=== PATIENT | female | born 1980 | race Caucasian/White ===

== ENCOUNTER → 2017-12-27 | Outpatient (CLI) | payer OTHER ==
--- NOTE | 2017-12-27 11:44 | KCIC ---
LIMITED ABDOMINAL DOPPLER History: Elevated liver enzymes Comparison: None. Findings: Multiple grayscale, color, and duplex spectral analysis waveform images of the hepatic vasculature are submitted. Hepatic veins are patent. Portal vein is patent. There is normal directional flow of the hepatic vasculature. There is is segmental visualization of the inferior vena cava. There is diffuse coarsening of the echotexture of the liver. Right lobe of the liver measured 17.1 cm longitudinal. Visualized common bile duct is within normal limits at 0.3 cm. Exam does not fully evaluate the abdominal visceral organs. Splenic vein is patent. Impression: 1. There is normal flow of the hepatic vasculature. 2. There is diffuse coarsening of the echotexture of liver, most likely due to steatosis. Electronically signed by: Pierre Ellis MD (12/27/2017 11:40 AM) [id number]
== END | disposition home or self-care (01) ==
LOC: KCIC US 08:00
PROVIDERS: ATTEND Family Medicine
DX: R74.8 Abnormal levels of other serum enzymes (principal)
CPT/HCPCS: 93976

== ENCOUNTER 2018-08-17 15:17 | Emergency (ER) | payer OTHER ==
[~2018-08-17] VITALS: Ht 170.2 cm; Wt 113.4 kg
--- NOTE | 2018-08-17 15:55 | PHYS DOC ---
Past Medical History Past Medical History: Hypothyroid Past Surgical History: Tonsillectomy Alcohol Use: Rarely Drug Use: None Adult General Chief Complaint Chief Complaint: COUGH HPI HPI 38-year-old female presents to ER for complaints of cough, chest tightness, and fever. Patient reports she went to [place] on Monday and tumbled multiple times in the water causing her to swallow a large amount of water. Patient states she felt fine the following day however over the past couple of days she has developed a dry barky cough- denies any shortness of air. Patient states she is tightness in the center of her chest denies pain radiation. Patient on arrival has 100.5 temperature denies taking any [id number] medications. 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 Patient reports she has had T&A however has had a sore throat over the past couple of days. Patient denies any recent with travel, smoking history, or past cardiac history. Review of Systems Review of Systems Constitutional: Reports fever Eyes: Denies change in visual acuity, redness, or eye pain [] HENT: Denies nasal congestion. Reports sore throat Respiratory: Denies shortness of breath. Reports dry barky cough Cardiovascular: Reports chest tightness GI: Denies abdominal pain, nausea, vomiting, bloody stools or diarrhea [] : Denies dysuria or hematuria [] Musculoskeletal: Denies back/neck pain or joint pain [] Integument: Denies rash or skin lesions [] Neurologic: Denies headache, focal weakness or sensory changes [] Endocrine: Denies polyuria or polydipsia [] All other systems were reviewed and found to be within normal limits, except as documented in this note. Current Medications Current Medications Current Medications Medications (Trade) Dose Ordered Sig/Ewelina Start Time Stop Time Status Last Admin Dose Admin Acetaminophen (Tylenol) 1,000 mg 1X ONCE 08/17/18 16:45 08/17/18 16:48 DC 08/17/18 17:50 1,000 MG Albuterol/ Ipratropium (Duoneb) 3 ml 1X ONCE 08/17/18 16:00 08/17/18 16:01 DC 08/17/18 16:01 3 ML Ibuprofen (Motrin) 600 mg 1X ONCE 7/12/19 16:00 08/17/18 16:01 DC 08/17/18 15:53 600 MG Prednisone (Prednisone) 40 mg 1X ONCE 08/17/18 16:00 08/17/18 16:01 DC 08/17/18 15:53 40 MG Sodium Chloride 1,000 ml @ 1,000 mls/hr 1X ONCE 08/17/18 16:45 08/17/18 17:44 DC 08/17/18 17:51 1,000 MLS/HR Allergies Allergies Allergies Coded Allergies Type Severity Reaction Last Updated Verified No Known Drug Allergies 08/17/18 No Physical Exam Physical Exam Constitutional: Well developed, well nourished, no acute distress, non-toxic appearance. [] HENT: Normocephalic, atraumatic, bilateral external ears normal, oropharynx mike [address], pharyngeal erythema, nose normal. [] Eyes: Pupils equal, conjunctiva normal, no discharge. [] Neck: Normal range of motion, no tenderness, supple, no stridor. [] Cardiovascular: Tachycardic heart rate regular rhythm, no murmur [] Lungs & Thorax: Bilateral breath sounds clear to auscultation- diminished in ba ses. Resp. equal/nonlabored. Speaking in full sentences Abdomen: Bowel sounds normal, soft, no tenderness, no masses, no pulsatile masses. [] Skin: Warm, dry, no erythema, no rash. [] Back: No tenderness, no CVA tenderness. [] Extremities: No tenderness, no cyanosis, no clubbing, ROM intact, no edema. [] Neurologic: Alert and oriented X 3, normal motor function, normal sensory function, no focal deficits noted. [] Psychologic: Affect normal, judgement normal, mood normal. [] Current Patient Data Vital Signs Vital Signs Date Time Temp Pulse Resp B/P (MAP) Pulse Ox O2 Delivery O2 Flow Rate FiO2 08/17/18 19:30 96 120/70 (87) 94 Room Air 08/17/18 15:28 100.5 18 100.5 Lab Values Laboratory Tests Test 08/17/18 15:40 08/17/18 17:40 08/17/18 18:30 Group A Streptococcus Rapid Negative (NEGATIVE) White Blood Count 11.0 x10^3/uL (4.0-11.0) Red Blood Count 4.83 x10^6/uL (3.50-5.40) Hemoglobin 14.4 g/dL (12.0-15.5) Hematocrit 41.8 % (36.0-47.0) Mean Corpuscular Volume 87 fL (79-100) Mean Corpuscular Hemoglobin 30 pg (25-35) Mean Corpuscular Hemoglobin Concent 34 g/dL (31-37) Red Cell Distribution Width 14.2 % (11.5-14.5) Platelet Count 246 x10^3/uL (140-400) Neutrophils (%) (Auto) 90 % (31-73) H Lymphocytes (%) (Auto) 4 % (24-48) L Monocytes (%) (Auto) 4 % (0-9) Eosinophils (%) (Auto) 1 % (0-3) Basophils (%) (Auto) 0 % (0-3) Neutrophils # (Auto) 9.9 x10^3/uL (1.8-7.7) H Lymphocytes # (Auto) 0.5 x10^3/uL (1.0-4.8) L Monocytes # (Auto) 0.5 x10^3/uL (0.0-1.1) Eosinophils # (Auto) 0.1 x10^3/uL (0.0-0.7) Basophils # (Auto) 0.0 x10^3/uL (0.0-0.2) Segmented Neutrophils % 87 % (35-66) H Band Neutrophils % 6 % (0-9) Lymphocytes % 2 % (24-48) L Monocytes % 5 % (0-10) Toxic Granulation Mod Platelet Estimate Adequate (ADEQUATE) D-Dimer (Giselle) 0.34 ug/mlFEU (0.00-0.50) Maternal Serum HCG Beta Subunit 1 mIU/mL (0-5) Sodium Level 137 mmol/L (136-145) Potassium Level 3.6 mmol/L (3.5-5.1) Chloride Level 102 mmol/L (98-107) Carbon Dioxide Level 27 mmol/L (21-32) Anion Gap 8 (6-14) Blood Urea Nitrogen 9 mg/dL (7-20) Creatinine 0.9 mg/dL (0.6-1.0) Estimated GFR (Cockcroft-Gault) 70.8 BUN/Creatinine Ratio 10 (6-20) Glucose Level 107 mg/dL (70-99) H Calcium Level 9.7 mg/dL (8.5-10.1) Magnesium Level 1.8 mg/dL (1.8-2.4) Total Bilirubin 2.4 mg/dL (0.2-1.0) H Aspartate Amino Transferase (AST) 22 U/L (15-37) Alanine Aminotransferase (ALT) 36 U/L (14-59) Alkaline Phosphatase 82 U/L (46-116) Troponin I Quantitative < 0.017 ng/mL (0.000-0.055) Total Protein 8.0 g/dL (6.4-8.2) Albumin 4.2 g/dL (3.4-5.0) Albumin/Globulin Ratio 1.1 (1.0-1.7) Urine Collection Type Unknown Urine Color Yellow Urine Clarity Clear Urine pH 6.5 Urine Specific [place] <=1.005 Urine Protein Negative mg/dL (NEG-TRACE) Urine Glucose (UA) Negative mg/dL (NEG) Urine Ketones (Stick) Trace mg/dL (NEG) Urine Blood Negative (NEG) Urine Nitrite Negative (NEG) Urine Bilirubin Negative (NEG) Urine Urobilinogen Dipstick 0.2 mg/dL (0.2 mg/dL) Urine Leukocyte Esterase Negative (NEG) Urine RBC 0 /HPF (0-2) Urine WBC 0 /HPF (0-4) Urine Squamous Epithelial Cells Occ /LPF Urine Bacteria 0 /HPF (0-FEW) Laboratory Tests 08/17/18 17:40 Laboratory Tests 08/17/18 17:40 EKG EKG EKG obtained 08/17/18 at [address] Luz Sinus tachycardia Rate 119 No STEMI Radiology/Procedures Radiology/Procedures PROCEDURE: CHEST PA & LATERAL CHEST PA LATERAL History: Fever, cough, chest tightness Comparison: None. Findings: The cardiomediastinal silhouette is normal. Pulmonary vasculature is normal. The lungs are clear. No pleural effusion or pneumothorax is seen. There is no acute bone abnormality. IMPRESSION: No acute cardiopulmonary process. Electronically signed by: Don Son MD (08/17/2018 4:35 PM) [facility] DICTATED and SIGNED BY: DON SON MD DATE: 08/17/18 7547 Course & Med Decision Making Course & Med Decision Making Pertinent Labs and Imaging studies reviewed. (See chart for details) 1635: On reevaluation patient reports she has had improvement in her breathing following DuoNeb treatment but feels like her heart is racing- HR is 130s on the monitor with temperature 100.9 following dose of ibuprofen. During initial exam labs were offered however patient preferred to hold off on any labs. With ongoing tachycardia patient is agreeable with labs for further evaluation. Will provide patient with IV fluids and dose of Tylenol for fever. On reexamination patient does have increased air movement throughout all lung mayberry. 1900: On reevaluation patient reports she is feeling much better- HR 109 currently and pt is denying any chest tightness/SOA. Providing additional IV fluids however patient is comfortable at this time with home discharge without further care. Test results were discussed with patient patient had negative strep test, EKG with no acute ST elevation/STEMI and troponin neg, d-dimer normal limits, UA negative for infection. Discussed possible viral illness as her chest x-ray was also negative for acute findings. Education provided on signs and symptoms to return to ER. Discharge instructions were discussed. Will provide Prednisone and inhaler with d/c paperwork. Patient to follow-up with primary care physician if symptoms persist or with any concerns. At time of discharge discussion patient was in no visible distress appearance much improved since initial exam. She is nontoxic in appearance with equal nonlabored respirations. Dragon Disclaimer Dragon Disclaimer This electronic medical record was generated, in whole or in part, using a voice recognition dictation system. Departure Departure Impression: Primary Impression: Cough Additional Impressions: Fever Viral illness Disposition: HOME, SELF-CARE Condition: STABLE Referrals: MAL GARCIA MD (PCP) Patient Instructions: Cough, Adult, Fever, Adult, Viral Syndrome Additional Instructions: Drink adequate water daily. Tylenol and/or ibuprofen as needed for pain as directed on container. If symptoms persist follow-up with your primary care physician or return to the emergency department for reevaluation and further care. Scripts Prednisone (PREDNISONE) 20 Mg Tablet 2 TAB PO DAILY, #8 TAB 0 Refills Start 08/18/18 Prov: JEMIMA GODINEZ REGULATORY AND COMPLIANCE TECHNICIAN 08/17/18 Albuterol Sulfate (Proair Hfa) 8.5 Gm Hfa.aer.ad 1 PUFF INH PRN Q6HRS PRN for COUGH, #1 INHALER 0 Refills Prov: JEMIMA GODINEZ APRN 08/17/18 Problem Qualifiers JEMIMA GODINEZ APRN Aug 17, 2018 15:55
[2018-08-17] MEDS ORDERED: IBUPROFEN 200 MG TABLET. PO ONE (16:00)
[2018-08-17] MEDS ORDERED: predniSONE 20 MG TABLET PO ONE (16:00)
[2018-08-17] MEDS ORDERED: IPRATRPIUM/ALBUTEROL 0.5/2.5MG 3 ML NEBU. NEB ONE (16:00)
--- NOTE | 2018-08-17 16:22 | EKG ---
[facility] [address] [place] [address] Test Date: 2018-08-17 Test Time: 15:53:43 Pat Name: DAMIAN PETER Department: Room: Gender: F Certified Dietary Manager: : 1980 Requested By: JEMIMA GODINEZ Order Number: [id number] Reading MD: Measurements Intervals Thor Rate: 119 P: 24 AL: 136 QRS: 29 QRSD: 80 T: 33 QT: 298 QTc: 426 Interpretive Statements SINUS TACHYCARDIA NO SPECIFIC ECG ABNORMALITIES RI6.01 No previous ECG available for comparison
--- NOTE | 2018-08-17 16:37 | RAD ---
CHEST PA LATERAL History: Fever, cough, chest tightness Comparison: None. Findings: The cardiomediastinal silhouette is normal. Pulmonary vasculature is normal. The lungs are clear. No pleural effusion or pneumothorax is seen. There is no acute bone abnormality. IMPRESSION: No acute cardiopulmonary process. Electronically signed by: Don Jarrett MD (08/17/2018 4:35 PM) [facility]
[2018-08-17] MEDS ORDERED: IV NORMAL SALINE 1000ML BAG 1,000 ML IV ONE (16:45)
[2018-08-17] MEDS ORDERED: ACETAMINOPHEN 500 MG TABLET PO ONE (16:45)
[2018-08-17 17:53] LABS: BASO % 0 % (0-3); EOS # 0.1 x10^3/uL (0.0-0.7); EOS % 1 % (0-3); HEMATOCRIT 41.8 % (36.0-47.0); HEMOGLOBIN 14.4 g/dL (12.0-15.5); LYMPH # 0.5 x10^3/uL (1.0-4.8); LYMPH % 4 % (24-48); MEAN CORPUSCULAR HEMOGLOBIN 30 pg (25-35); MEAN CORPUSCULAR HGB CONC 34 g/dL (31-37); MEAN CORPUSCULAR VOLUME 87 fL (79-100); MONO # 0.5 x10^3/uL (0.0-1.1); MONO % 4 % (0-9); NEUT # 9.9 x10^3/uL (1.8-7.7); NEUT % 90 % (31-73); PLATELET COUNT 246 x10^3/uL (140-400); RED BLOOD COUNT 4.83 x10^6/uL (3.50-5.40); RED CELL DISTRIBUTION WIDTH 14.2 % (11.5-14.5)
[2018-08-17 18:04] LABS: CALCIUM 9.7 mg/dL (8.5-10.1); CREATININE 0.9 mg/dL (0.6-1.0); GFR 70.8; POTASSIUM 3.6 mmol/L (3.5-5.1)
[2018-08-17 18:09] LABS: % BANDS 6 % (0-9); % LYMPHS 2 % (24-48); % MONOS 5 % (0-10); % SEGS 87 % (35-66); PLT ESTIMATE ADEQUATE (ADEQUATE)
[2018-08-17 18:10] LABS: ALBUMIN 4.2 g/dL (3.4-5.0); ALBUMIN/GLOBULIN RATIO 1.1 (1.0-1.7); MAGNESIUM 1.8 mg/dL (1.8-2.4); TOTAL BILIRUBIN 2.4 mg/dL (0.2-1.0)
[2018-08-17 18:11] LABS: TOXIC GRANULATION MOD
[2018-08-17 18:46] LABS: BILIRUBIN,URINE NEGATIVE (NEG); CLARITY,URINE CLEAR; COLOR,URINE YELLOW; NITRITE,URINE NEGATIVE (NEG); PH,URINE 6.5; PROTEIN,URINE NEGATIVE (NEG-TRACE); UROBILINOGEN,URINE 0.2 mg/dL (0.2 mg/dL)
[2018-08-17 19:03] LABS: BACTERIA,URINE 0 /HPF (0-FEW); RBC,URINE 0 /HPF (0-2); SQUAMOUS EPITHELIAL CELL,UR OCC /LPF; WBC,URINE 0 /HPF (0-4)
[2018-08-17] MEDS ORDERED: PRED20TA PO (19:11)
[2018-08-17] MEDS ORDERED: ALBU2.5V8 INH (19:11)
[2018-08-17 19:30] VITALS: BP 120/70
== END 2018-08-17 19:54 | disposition home or self-care (01) ==
LOC: ER 15:17
DX: B34.9 Viral infection, unspecified (principal); R07.89 Other chest pain; R00.0 Tachycardia, unspecified; E03.9 Hypothyroidism, unspecified; Z90.89 Acquired absence of other organs
CPT/HCPCS: 36415; 71046; 80053; 81001; 83735; 84484; 84702; 85007; 85025; 85379; 87070; 87880; 93005; 94640; 99285; J7030; J7512; J7620

== ENCOUNTER 2018-08-22 16:59 | Emergency (ER) | payer OTHER ==
[~2018-08-22] VITALS: Ht 170.2 cm; Wt 97.5 kg
[~2018-08-22 16:59] MED LIST: ALBU2.5V8 INH; PRED20TA PO
[2018-08-22 17:15] VITALS: BP 149/97
--- NOTE | 2018-08-22 18:07 | PHYS DOC ---
Past Medical History Past Medical History: Hypothyroid Past Surgical History: Tonsillectomy Alcohol Use: Rarely Drug Use: None Adult General Chief Complaint Chief Complaint: COUGH HPI HPI Patient is a 38 year old female presents to the ER with cough and shortness of breath has been ongoing since . Also has been running fevers. Patient was seen here on Monday and had labs and a chest x-ray performed. She still she's gotten worse since that time. States that she was oral to follow on Monday and swallowed some water symptoms started after that. Rates her pain is 2 out of 10 in severity, has been taking prednisone at home. Review of Systems Review of Systems Constitutional: Reports fever or chills [] Eyes: Denies change in visual acuity, redness, or eye pain [] HENT: Denies nasal congestion or sore throat [] Respiratory: Reports cough and shortness of breath [] Cardiovascular: No additional information not addressed in HPI [] GI: Denies abdominal pain, nausea, vomiting, bloody stools or diarrhea [] : Denies dysuria or hematuria [] Musculoskeletal: Denies back pain or joint pain [] Integument: Denies rash or skin lesions [] Neurologic: Denies headache, focal weakness or sensory changes [] Endocrine: Denies polyuria or polydipsia [] Complete systems were reviewed and found to be within normal limits, except as documented in this note. Current Medications Current Medications Current Medications Medications (Trade) Dose Ordered Sig/Ewelina Start Time Stop Time Status Last Admin Dose Admin Potassium Chloride (Klor-Con) 20 meq 1X ONCE 08/22/18 19:30 08/22/18 19:31 Allergies Allergies Allergies Coded Allergies Type Severity Reaction Last Updated Verified No Known Drug Allergies 08/17/18 No Physical Exam Physical Exam Constitutional: Well developed, well nourished, no acute distress, non-toxic appearance. [] HENT: Normocephalic, atraumatic, bilateral external ears normal, oropharynx moist, no oral exudates, nose normal. [] Eyes: PERRLA, EOMI, conjunctiva normal, no discharge. [] Neck: Normal range of motion, no tenderness, supple, no stridor. [] Cardiovascular:Heart rate regular rhythm, no murmur [] Lungs & Thorax: Bilateral breath sounds clear to auscultation, slight crackle in the right base. Skin: Warm, dry, no erythema, no rash. [] Back: No tenderness, no CVA tenderness. [] Extremities: No tenderness, no cyanosis, no clubbing, ROM intact, no edema. [] Neurologic: Alert and oriented X 3, normal motor function, normal sensory function, no focal deficits noted. [] Psychologic: Affect normal, judgement normal, mood normal. [] Current Patient Data Vital Signs Vital Signs Date Time Temp Pulse Resp B/P (MAP) Pulse Ox O2 Delivery O2 Flow Rate FiO2 08/22/18 17:15 97.8 86 16 149/97 (114) 98 Room Air 97.8 Lab Values Laboratory Tests Test 08/22/18 18:41 White Blood Count 11.2 x10^3/uL (4.0-11.0) H Red Blood Count 5.06 x10^6/uL (3.50-5.40) Hemoglobin 15.1 g/dL (12.0-15.5) Hematocrit 44.3 % (36.0-47.0) Mean Corpuscular Volume 88 fL (79-100) Mean Corpuscular Hemoglobin 30 pg (25-35) Mean Corpuscular Hemoglobin Concent 34 g/dL (31-37) Red Cell Distribution Width 14.2 % (11.5-14.5) Platelet Count 296 x10^3/uL (140-400) Neutrophils (%) (Auto) 48 % (31-73) Lymphocytes (%) (Auto) 44 % (24-48) Monocytes (%) (Auto) 6 % (0-9) Eosinophils (%) (Auto) 1 % (0-3) Basophils (%) (Auto) 1 % (0-3) Neutrophils # (Auto) 5.4 x10^3/uL (1.8-7.7) Lymphocytes # (Auto) 5.0 x10^3/uL (1.0-4.8) H Monocytes # (Auto) 0.7 x10^3/uL (0.0-1.1) Eosinophils # (Auto) 0.1 x10^3/uL (0.0-0.7) Basophils # (Auto) 0.1 x10^3/uL (0.0-0.2) Sodium Level 139 mmol/L (136-145) Potassium Level 3.4 mmol/L (3.5-5.1) L Chloride Level 102 mmol/L (98-107) Carbon Dioxide Level 29 mmol/L (21-32) Anion Gap 8 (6-14) Blood Urea Nitrogen 13 mg/dL (7-20) Creatinine 0.9 mg/dL (0.6-1.0) Estimated GFR (Cockcroft-Gault) 70.8 BUN/Creatinine Ratio 14 (6-20) Glucose Level 107 mg/dL (70-99) H Calcium Level 9.8 mg/dL (8.5-10.1) Total Bilirubin 1.1 mg/dL (0.2-1.0) H Aspartate Amino Transferase (AST) 17 U/L (15-37) Alanine Aminotransferase (ALT) 35 U/L (14-59) Alkaline Phosphatase 68 U/L (46-116) Total Protein 7.2 g/dL (6.4-8.2) Albumin 3.7 g/dL (3.4-5.0) Albumin/Globulin Ratio 1.1 (1.0-1.7) Laboratory Tests 08/22/18 18:41 Laboratory Tests 08/22/18 18:41 EKG EKG [] Radiology/Procedures Radiology/Procedures Preliminary X-ray read by Dr. Westbrook, Possible small pneumonia in R lower lobe.[] Course & Med Decision Making Course & Med Decision Making Pertinent Labs and Imaging studies reviewed. (See chart for details) Will repeat labs, and chest x-ray. Patient does not appear toxic in the room. [place] crackle in Right lower lobe, has small area of possible pneumonia on chest x-ray. Labs were unremarkable with exception of stable WBC of 11.2, and potassium of 3.4. Will give PO potassium and D/C home. Dragon Disclaimer Dragon Disclaimer This electronic medical record was generated, in whole or in part, using a voice recognition dictation system. Departure Departure Impression: Primary Impression: Pneumonia Disposition: HOME, SELF-CARE Condition: STABLE Referrals: MAL GARCIA MD (PCP) Patient Instructions: Pneumonia, Adult Additional Instructions: Thank you for visiting [facility]. We appreciate you trusting us with your care. If any additional problems come up don't hesitate to return to visit us. Please follow up with your primary care provider so they can plan additional care if needed and know about the problem that you had. If symptoms worsen come back to the Emergency Department. Any concerning symptoms that start such as chest pain, shortness of air, weakness or numbness on one side of the body, running high fevers or any other concerning symptoms return to the ER. Scripts Benzonatate (TESSALON PERLE) 100 Mg Capsule 1 CAP PO TID PRN for COUGH, #30 CAP Prov: NOEL LEOS APRN 08/22/18 Doxycycline Hyclate (DOXYCYCLINE HYCLATE) 100 Mg Tablet 1 TAB PO BID for 7 Days, #14 TAB Prov: NOEL LEOS APRN 08/22/18 Problem Qualifiers Primary Impression: Pneumonia Pneumonia type: due to unspecified organism Laterality: right Lung location: lower lobe of lung Qualified Codes: J18.1 - Lobar pneumonia, unspecified organism NOEL LEOS APRN Aug 22, 2018 18:07
[2018-08-22 18:49] LABS: BASO # 0.1 x10^3/uL (0.0-0.2); BASO % 1 % (0-3); EOS # 0.1 x10^3/uL (0.0-0.7); EOS % 1 % (0-3); HEMATOCRIT 44.3 % (36.0-47.0); HEMOGLOBIN 15.1 g/dL (12.0-15.5); LYMPH % 44 % (24-48); MEAN CORPUSCULAR HEMOGLOBIN 30 pg (25-35); MEAN CORPUSCULAR HGB CONC 34 g/dL (31-37); MEAN CORPUSCULAR VOLUME 88 fL (79-100); MONO # 0.7 x10^3/uL (0.0-1.1); MONO % 6 % (0-9); NEUT # 5.4 x10^3/uL (1.8-7.7); NEUT % 48 % (31-73); PLATELET COUNT 296 x10^3/uL (140-400); RED BLOOD COUNT 5.06 x10^6/uL (3.50-5.40); RED CELL DISTRIBUTION WIDTH 14.2 % (11.5-14.5); WHITE BLOOD COUNT 11.2 x10^3/uL (4.0-11.0)
[2018-08-22 19:01] LABS: CALCIUM 9.8 mg/dL (8.5-10.1); CREATININE 0.9 mg/dL (0.6-1.0); GFR 70.8; POTASSIUM 3.4 mmol/L (3.5-5.1)
[2018-08-22] MEDS ORDERED: DOXY100T PO (19:01)
[2018-08-22 19:07] LABS: ALBUMIN 3.7 g/dL (3.4-5.0); ALBUMIN/GLOBULIN RATIO 1.1 (1.0-1.7); TOTAL BILIRUBIN 1.1 mg/dL (0.2-1.0); TOTAL PROTEIN 7.2 g/dL (6.4-8.2)
[2018-08-22] MEDS ORDERED: BENZ100C PO (19:22)
[2018-08-22] MEDS ORDERED: POTASSIUM CHLORIDE 20 MEQ TABLET.ER. PO ONE (19:30)
--- NOTE | 2018-08-23 02:51 | RAD ---
PA and lateral chest radiographs 08/22/2018 Clinical History: Cough and shortness of breath. PA and lateral digital radiographs of the chest were obtained. Comparison study is dated 08/17/2018. The cardiac and mediastinal silhouettes are within normal limits in size and configuration. No pulmonary infiltrate is seen. No pleural effusion or pneumothorax is noted. The osseous structures are grossly intact. Impression: No acute abnormality is seen. Electronically signed by: Cliff Burdick MD (08/23/2018 2:49 AM) [facility]
== END 2018-08-22 19:29 | disposition home or self-care (01) ==
LOC: ER 16:59 → EEVIPCON 16:59 → ER 19:29
DX: J18.1 Lobar pneumonia, unspecified organism (principal); E03.9 Hypothyroidism, unspecified
CPT/HCPCS: 36415; 71046; 80053; 85025; 99285-25

== ENCOUNTER → 2018-11-12 | Outpatient (CLI) | payer OTHER ==
[~2018-11-12] MED LIST changes: +BENZ100C PO; +DOXY100T PO
[2018-11-12 14:52] LABS: BASO % 1 % (0-3); EOS # 0.2 x10^3/uL (0.0-0.7); EOS % 2 % (0-3); HEMATOCRIT 44.9 % (36.0-47.0); HEMOGLOBIN 15.2 g/dL (12.0-15.5); LYMPH # 2.7 x10^3/uL (1.0-4.8); LYMPH % 34 % (24-48); MEAN CORPUSCULAR HEMOGLOBIN 30 pg (25-35); MEAN CORPUSCULAR HGB CONC 34 g/dL (31-37); MEAN CORPUSCULAR VOLUME 89 fL (79-100); MONO # 0.6 x10^3/uL (0.0-1.1); MONO % 8 % (0-9); NEUT # 4.3 x10^3/uL (1.8-7.7); NEUT % 55 % (31-73); PLATELET COUNT 301 x10^3/uL (140-400); RED BLOOD COUNT 5.07 x10^6/uL (3.50-5.40); RED CELL DISTRIBUTION WIDTH 13.6 % (11.5-14.5); WHITE BLOOD COUNT 7.8 x10^3/uL (4.0-11.0)
[2018-11-12 15:23] LABS: ALBUMIN 4.1 g/dL (3.4-5.0); ALBUMIN/GLOBULIN RATIO 1.1 (1.0-1.7); CALCIUM 9.6 mg/dL (8.5-10.1); CREATININE 0.8 mg/dL (0.6-1.0); GFR 81.2; POTASSIUM 4.2 mmol/L (3.5-5.1); TOTAL BILIRUBIN 1.7 mg/dL (0.2-1.0); TOTAL PROTEIN 7.9 g/dL (6.4-8.2)
[2018-11-12 15:25] LABS: CHOLESTEROL/HDL RATIO 4.1
[2018-11-13 07:16] LABS: HEMOGLOBIN A1C 5.2 % (4.8-5.6)
== END | disposition home or self-care (01) ==
LOC: LAB 13:57
PROVIDERS: ATTEND Family Medicine
DX: E03.9 Hypothyroidism, unspecified (principal)
CPT/HCPCS: 36415; 80053; 80061; 83036; 84436; 84443; 85025

== ENCOUNTER → 2019-08-16 | Outpatient (CLI) | payer OTHER | END | disposition home or self-care (01) | LOC: LAB 15:51 | PROVIDERS: ATTEND Internal Medicine Pulmonary Disease | DX: Z20.828 Contact with and (suspected) exposure to other viral communicable diseases (principal); J34.9 Unspecified disorder of nose and nasal sinuses | CPT/HCPCS: U0003-CS ==